=== PATIENT | female | born 1955 | race Two or more races ===

== ENCOUNTER 2019-02-28 18:37 | Emergency (ER) | payer MEDICAID ==
[~2019-02-28] VITALS: Ht 162.6 cm; Wt 74.8 kg
[2019-02-28 19:40] LABS: Basophils # (auto) 0 uL; Basophils % (auto) 0.4 % (0.0-2.0); Eosinophils # (auto) 0.3 uL; Hematocrit 32.4 % (36.0-46.0); Lymphocytes # (auto) 1.4 uL; Lymphocytes % (auto) 15.5 % (10.0-50.0); Mean Corpuscular Hemoglobin 31.4 pg (28.0-32.0); Mean Corpuscular Volume 92.3 fL (80.0-100.0); Monocytes # (auto) 0.5 uL; Monocytes % (auto) 5.6 % (0.0-12.0); Neutrophils # (auto) 6.8 uL; Neutrophils % (auto) 75.5 % (37.0-80.0); Nucleated Red Blood Cells % 0.1 %; Platelet Count (auto) 142 10^3/uL (140-450); Red Blood Cells 3.51 10^6/uL (4.0-5.20); Red Cell Distribution Width 13.6 % (11.8-14.3)
[2019-02-28 19:54] LABS: Albumin 2.9 g/dL (3.4-5.0); Anion Gap 9 (5-15); Blood Urea Nitrogen 26 mg/dL (7-18); Calcium 8.1 mg/dL (8.5-10.1); Carbon Dioxide 29 mmol/L (21-32); Chloride 98 mmol/L (98-107); Glucose 112 mg/dL (74-106); Magnesium 2.1 mg/dL (1.6-2.6); Potassium 3.7 mmol/L (3.5-5.1); Sodium 136 mmol/L (136-145)
[2019-02-28 19:56] LABS: Alanine Aminotransferase 36 U/L (13-56); Aspartate Aminotransferase 31 U/L (15-37); BUN/Creatinine Ratio 10.7; GFR African American 26 mL/min; GFR Non-African American 22 mL/min
[2019-02-28 20:01] LABS: Alkaline Phosphatase 140 U/L (45-117); Bilirubin, Total 0.3 mg/dL (0.2-1.0)
[2019-03-01] MEDS ORDERED: MORPHINE SULFATE 4 MG/ML SYR/VIAL IV ONE (01:15)
[2019-03-01] MEDS ORDERED: ONDANSETRON HCL 4 MG/2 ML VIAL IV ONE (01:15)
[2019-03-01 01:16] VITALS: BP 144/77
== END 2019-03-01 03:00 | disposition home or self-care (01) ==
LOC: EDUNIT# 18:37 → ER 18:45
DX: R53.1 Weakness (principal); R55 Syncope and collapse; E11.22 Type 2 diabetes mellitus with diabetic chronic kidney disease; I12.0 Hypertensive chronic kidney disease with stage 5 chronic kidney disease or end stage renal disease; N18.6 End stage renal disease; Z99.2 Dependence on renal dialysis; Z79.4 Long term (current) use of insulin; Z86.73 Personal history of transient ischemic attack (TIA), and cerebral infarction without residual deficits
CPT/HCPCS: 36415; 71045; 80053; 83735; 84484; 85025; 93005; 96374; 96375; 99284; J2270; J2405

== ENCOUNTER 2022-08-04 15:48 | Inpatient (IN) | payer MEDICAID, OTHER ==
[2022-08-04] VITALS (8 sets, daily range): BP systolic 89–230; BP diastolic 38–97
[~2022-08-04] VITALS: Ht 165.1 cm; Wt 83.5 kg
[2022-08-04] MEDS ORDERED: MIDAZOLAM HCL 5 MG/ML-1ML VIAL ONE (15:55)
[2022-08-04] MEDS ORDERED: ETOMIDATE (2MG/ML) 20ML VIAL IV ONE ×2 (15:55→16:00)
[2022-08-04] MEDS ORDERED: ROCURONIUM 10MG/ML 10ML VIAL IV ONE ×2 (15:55→16:00)
[2022-08-04] MEDS ORDERED: MIDAZOLAM HCL 5 MG/ML-1ML VIAL IV ONE (16:00)
[2022-08-04 17:37] LABS: Basophils # (auto) 0 10 ^3/uL (0-0.2); Basophils % (auto) 0.8 % (0.0-2.0); Eosinophils # (auto) 0.2 10 ^3/uL (0-0.8); Eosinophils % (auto) 3.7 % (0.0-7.0); Hematocrit 36.4 % (36.0-46.0); Hemoglobin 11.8 g/dL (12.2-16.2); Lymphocytes # (auto) 0.8 10 ^3/uL (0.4-5.4); Mean Corpuscular Hemoglobin 30.5 pg (28.0-32.0); Mean Corpuscular Hgb Conc. 32.4 g/dL (32.0-36.0); Mean Corpuscular Volume 94.2 fL (80.0-100.0); Monocytes # (auto) 0.5 10 ^3/uL (0-1.3); Monocytes % (auto) 8.1 % (0.0-12.0); Neutrophils # (auto) 4.1 10 ^3/uL (1.6-8.6); Neutrophils % (auto) 72.4 % (37.0-80.0); Red Blood Cells 3.87 10^6/uL (4.0-5.20); Red Cell Distribution Width 16.8 % (11.8-14.3); White Blood Cell 5.6 10^3/uL (4.4-10.8)
[2022-08-04 17:47] LABS: Urine Bacteria FEW /hpf (None Seen); Urine Blood 1+ /uL (Negative); Urine Hyaline Cast FEW /lpf (0 - 2); Urine Specific Gravity 1.016 (1.001-1.035); Urine WBC <1 /hpf (0 - 5)
[2022-08-04 17:56] LABS: Albumin 3.5 g/dL (3.4-5.0); Calcium 7.6 mg/dL (8.5-10.1); Potassium 4.1 mmol/L (3.5-5.1)
[2022-08-04 18:00] LABS: BUN/Creatinine Ratio 8.1; Bilirubin, Total 1.2 mg/dL (0.2-1.0); Total Protein 7.3 g/dL (6.4-8.2)
[2022-08-04] MEDS: PROPOFOL 100 ML IV SCH (19:01)
[2022-08-04] MEDS ORDERED: ALBUTEROL SULF 2.5 MG/0.5ML(0.5%) NEB SOLN NEB PRN (21:00)
[2022-08-04] MEDS ORDERED: NITROGLYCERIN 0.4 MG SL TAB SL PRN (21:00)
[2022-08-04] MEDS ORDERED: DEXTROSE (50%) 50ML SYRG IV PRN (21:00)
[2022-08-04] MEDS ORDERED: ONDANSETRON HCL 4 MG/2 ML VIAL IV PRN (21:00)
[2022-08-04] MEDS ORDERED: PANTOPRAZOLE 40 MG/10 ML VIAL INJ IV ONE (21:00)
[2022-08-04 21:36] LABS: Alcohol, Urine < 3.0 mg/dL (0-10); Amphetamine Screen, Urine NEGATIVE (NEGATIVE); Barbiturate Scree,Urine NEGATIVE (NEGATIVE); Benzodiazephine Screen, Urine NEGATIVE (NEGATIVE); Cannabinoid Screen, Urine NEGATIVE (NEGATIVE); Cocaine Screen, Urine NEGATIVE (NEGATIVE); Opiate Scree,Urine NEGATIVE (NEGATIVE); Phencyclidine Screen, Urine NEGATIVE (NEGATIVE)
[2022-08-04 22:14] LABS: Urine Bacteria FEW /hpf (None Seen); Urine Blood 1+ /uL (Negative); Urine Specific Gravity 1.016 (1.001-1.035); Urine WBC 2 /hpf (0 - 5)
[2022-08-04] MEDS: MIDAZOLAM DRIP 50 mg/50mL 50 ML IV SCH (22:30)
[2022-08-05] VITALS (69 sets, daily range): BP systolic 61–207; BP diastolic 29–87
[2022-08-05] MEDS: MIDAZOLAM DRIP 50 mg/50mL 50 ML IV SCH ×2 (00:08→10:40)
[2022-08-05] MEDS: ACCU-CHEK COMFORT CURVE STRIP VI SCH ×4 (00:17→21:16)
[2022-08-05 04:34] LABS: Basophils # (auto) 0.1 10 ^3/uL (0-0.2); Eosinophils # (auto) 0.2 10 ^3/uL (0-0.8); Eosinophils % (auto) 3.7 % (0.0-7.0); Hematocrit 34.3 % (36.0-46.0); Hemoglobin 11.3 g/dL (12.2-16.2); Lymphocytes # (auto) 0.9 10 ^3/uL (0.4-5.4); Mean Corpuscular Hemoglobin 31.5 pg (28.0-32.0); Mean Corpuscular Hgb Conc. 32.9 g/dL (32.0-36.0); Mean Corpuscular Volume 95.6 fL (80.0-100.0); Monocytes # (auto) 0.3 10 ^3/uL (0-1.3); Monocytes % (auto) 5.7 % (0.0-12.0); Neutrophils # (auto) 4.3 10 ^3/uL (1.6-8.6); Neutrophils % (auto) 73.6 % (37.0-80.0); Nucleated Red Blood Cells % 0.1 %; Red Blood Cells 3.59 10^6/uL (4.0-5.20); Red Cell Distribution Width 16.8 % (11.8-14.3); White Blood Cell 5.8 10^3/uL (4.4-10.8)
[2022-08-05 04:54] LABS: Calcium 7.4 mg/dL (8.5-10.1); Potassium 4.9 mmol/L (3.5-5.1)
[2022-08-05 04:56] LABS: BUN/Creatinine Ratio 7.8; Bilirubin, Total 1.1 mg/dL (0.2-1.0); Total Protein 6.7 g/dL (6.4-8.2)
[2022-08-05] MEDS: fentaNYL Drip 2500mCg/250mlNS 250 ML IV SCH ×2 (04:56→21:45)
[2022-08-05] MEDS: InsuLIN REG 1unit/0.01ml Soln (100units/ml) SC SCH ×4 (06:00→21:18)
[2022-08-05] MEDS ORDERED: NOREPINEPHRINE 8 MG/250ML KIT 250 ML IV SCH (09:30)
[2022-08-05] MEDS: PANTOPRAZOLE 40 MG/10 ML VIAL INJ IV SCH (09:31)
[2022-08-05] MEDS: PROPOFOL 100 ML IV SCH (18:30)
[2022-08-05] MEDS: hydrALAZINE HCL 25 MG TAB PO SCH (21:15)
[2022-08-06] VITALS (19 sets, daily range): BP systolic 112–187; BP diastolic 28–94
[2022-08-06 04:09] LABS: Basophils # (auto) 0.1 10 ^3/uL (0-0.2); Eosinophils # (auto) 0.3 10 ^3/uL (0-0.8); Hematocrit 33.1 % (36.0-46.0); Hemoglobin 10.4 g/dL (12.2-16.2); Lymphocytes # (auto) 0.7 10 ^3/uL (0.4-5.4); Lymphocytes % (auto) 7.9 % (10.0-50.0); Mean Corpuscular Hemoglobin 30.5 pg (28.0-32.0); Mean Corpuscular Hgb Conc. 31.3 g/dL (32.0-36.0); Mean Corpuscular Volume 97.4 fL (80.0-100.0); Monocytes # (auto) 0.6 10 ^3/uL (0-1.3); Monocytes % (auto) 7.1 % (0.0-12.0); Neutrophils # (auto) 6.8 10 ^3/uL (1.6-8.6); Red Cell Distribution Width 16.5 % (11.8-14.3); White Blood Cell 8.5 10^3/uL (4.4-10.8)
[2022-08-06] MEDS: ACCU-CHEK COMFORT CURVE STRIP VI SCH ×4 (05:17→22:12)
[2022-08-06] MEDS: InsuLIN REG 1unit/0.01ml Soln (100units/ml) SC SCH ×4 (05:19→22:06)
[2022-08-06] MEDS: hydrALAZINE HCL 25 MG TAB PO SCH ×3 (05:26→22:03)
[2022-08-06 06:14] LABS: BUN/Creatinine Ratio 8.7; Calcium 6.7 mg/dL (8.5-10.1)
[2022-08-06] MEDS ORDERED: SODIUM CHL 0.9% 1000 ML BAG XX ONE (07:00)
[2022-08-06] MEDS: PANTOPRAZOLE 40 MG/10 ML VIAL INJ IV SCH (10:00)
[2022-08-06] MEDS ORDERED: diphenhdrAMINE HCL 50 MG/1 ML VL IV ONE (10:30)
[2022-08-06] MEDS ORDERED: FURO1TAB31 PO (10:33)
[2022-08-06] MEDS ORDERED: QUET25TA37 PO (10:33)
[2022-08-06] MEDS ORDERED: HYDR50TA15 PO (10:33)
[2022-08-06] MEDS ORDERED: CITA10TA8 PO (10:33)
[2022-08-06] MEDS ORDERED: NITR0.4S29 SL (10:33)
[2022-08-06] MEDS ORDERED: CALC667C PO (10:33)
[2022-08-06] MEDS ORDERED: GABA400C11 PO (10:33)
[2022-08-06] MEDS ORDERED: CARV3.1240 PO (10:33)
[2022-08-06] MEDS ORDERED: BACL10TA PO (10:33)
[2022-08-06] MEDS ORDERED: FLUT100I IN (10:33)
[2022-08-06] MEDS ORDERED: ALPR0.25 PO (10:33)
[2022-08-06] MEDS: CALCIUM ACETATE 667 MG CAP PO SCH ×2 (12:00→17:41)
[2022-08-06] MEDS: ALPRAZolam 0.25 MG TAB PO PRN (12:04)
[2022-08-06] MEDS: GABAPENTIN 300 MG CAP PO SCH (12:30)
[2022-08-06] MEDS ORDERED: hydrALAZINE HCL 25 MG TAB PO SCH (14:00)
[2022-08-06] MEDS ORDERED: hydrALAZINE HCL 20 MG/ML VL IV PRN (16:45)
[2022-08-06] MEDS: HYDROcodone-ACET 5/325MG TAB PO PRN (18:23)
[2022-08-06] MEDS ORDERED: QUEtiapine FUMARATE 25 MG TAB PO SCH (22:00)
[2022-08-06] MEDS: CARVEDILOL 3.125 MG TAB PO SCH (22:04)
[2022-08-07] MEDS: ALPRAZolam 0.25 MG TAB PO PRN (00:47)
[2022-08-07] MEDS: HYDROcodone-ACET 5/325MG TAB PO PRN (01:58)
[2022-08-07 04:28] VITALS: BP 143/54
[2022-08-07 06:13] LABS: Basophils # (auto) 0.1 10 ^3/uL (0-0.2); Basophils % (auto) 0.8 % (0.0-2.0); Eosinophils # (auto) 0.5 10 ^3/uL (0-0.8); Eosinophils % (auto) 6.6 % (0.0-7.0); Hematocrit 36.6 % (36.0-46.0); Hemoglobin 11.5 g/dL (12.2-16.2); Lymphocytes # (auto) 1.5 10 ^3/uL (0.4-5.4); Lymphocytes % (auto) 22.2 % (10.0-50.0); Mean Corpuscular Hemoglobin 30.3 pg (28.0-32.0); Mean Corpuscular Hgb Conc. 31.4 g/dL (32.0-36.0); Mean Corpuscular Volume 96.3 fL (80.0-100.0); Monocytes # (auto) 0.8 10 ^3/uL (0-1.3); Neutrophils # (auto) 4.1 10 ^3/uL (1.6-8.6); Neutrophils % (auto) 59.4 % (37.0-80.0); Nucleated Red Blood Cells % 0.1 %; Red Cell Distribution Width 16.3 % (11.8-14.3); White Blood Cell 6.9 10^3/uL (4.4-10.8)
[2022-08-07] MEDS: hydrALAZINE HCL 25 MG TAB PO SCH ×2 (06:16→14:26)
[2022-08-07] MEDS: ACCU-CHEK COMFORT CURVE STRIP VI SCH ×2 (06:16→11:23)
[2022-08-07] MEDS: InsuLIN REG 1unit/0.01ml Soln (100units/ml) SC SCH ×2 (06:30→11:24)
[2022-08-07 06:35] LABS: BUN/Creatinine Ratio 7.4; Calcium 7.5 mg/dL (8.5-10.1)
[2022-08-07] MEDS: CALCIUM ACETATE 667 MG CAP PO SCH ×2 (08:16→12:21)
[2022-08-07 09:00] VITALS: BP 125/75
[2022-08-07] MEDS: PANTOPRAZOLE 40 MG/10 ML VIAL INJ IV SCH (09:12)
[2022-08-07] MEDS: CARVEDILOL 3.125 MG TAB PO SCH (09:13)
[2022-08-07] MEDS: GABAPENTIN 300 MG CAP PO SCH (09:14)
[2022-08-07] MEDS ORDERED: FUROSEMIDE 40 MG TAB PO SCH (10:00)
[2022-08-07] MEDS ORDERED: FLUTICASONE-VILANTEROL 100-25mCg INHALER IN SCH (10:00)
[2022-08-07] MEDS ORDERED: CITALOPRAM HYDROBR 20 MG TAB PO SCH (10:00)
[2022-08-07] MEDS ORDERED: DOX100T PO (13:01)
[2022-08-07] MEDS ORDERED: HYDR-4902 PO (13:04)
[2022-08-07] MEDS ORDERED: ALPR0.25 PO (13:04)
[2022-08-07 13:06] VITALS: BP 135/59
[2022-08-07 15:20] VITALS: BP 165/79
[2022-08-07 16:54] VITALS: BP 152/68
[2022-08-07 17:10] VITALS: BP 152/68
[2022-08-07] MEDS ORDERED: DOXYCYCLINE 100 MG TAB/CAP PO SCH (22:00)
== END 2022-08-07 17:02 | disposition home or self-care (01) | DRG 208 ==
LOC: ER 15:48 → EDBD 15:48 → TELE 21:04 → ICU WEST 22:12 → TELE-EAST 08-06 15:40
PROVIDERS: ADMIT Nurse Practitioner; ATTEND Internal Medicine Geriatric Medicine
PROC: 5A1935Z Respiratory Ventilation, Less than 24 Consecutive Hours (ICD-10-PCS; principal; 2022-08-04)
PROC: 0BH17EZ Insertion of Endotracheal Airway into Trachea, Via Natural or Artificial Opening (ICD-10-PCS; 2022-08-04)
PROC: 5A1D70Z Performance of Urinary Filtration, Intermittent, Less than 6 Hours Per Day (ICD-10-PCS; 2022-08-06)
DX: J96.01 Acute respiratory failure with hypoxia (principal); G93.41 Metabolic encephalopathy; E43 Unspecified severe protein-calorie malnutrition; N18.6 End stage renal disease; I12.0 Hypertensive chronic kidney disease with stage 5 chronic kidney disease or end stage renal disease; D63.1 Anemia in chronic kidney disease; E11.22 Type 2 diabetes mellitus with diabetic chronic kidney disease; E83.39 Other disorders of phosphorus metabolism; K72.90 Hepatic failure, unspecified without coma; Z99.2 Dependence on renal dialysis; Z88.8 Allergy status to other drugs, medicaments and biological substances; Z86.73 Personal history of transient ischemic attack (TIA), and cerebral infarction without residual deficits; Z68.30 Body mass index [BMI] 30.0-30.9, adult
CPT/HCPCS: 31500; 36415; 36556; 36600; 70450; 71045; 71250; 72125; 74176; 80048; 80053; 80307; 81001; 82140; 82805; 82962; 83605; 84484; 85025; 87070; 87077; 87081; 87186; 87205; 90935; 93005; 94002; 94003; 94640; 96374; C9113; G0378; J1642; J1815; J2250; J2704